=== PATIENT | female | born 1970 | race Caucasian/White ===

== ENCOUNTER → 2021-05-18 | Outpatient (CLI) | payer BC ==
[2021-05-18 15:04] LABS: HEMOGLOBIN 14.9 gm/dl (12.3-15.3); RED BLOOD COUNT 4.8 M/UL (4.00-5.10)
[2021-05-18 15:26] LABS: BUN/CREATININE RATIO 25 (0-10)
[2021-05-19 11:13] LABS: HBSAG SCREEN Negative (Negative); HEP B CORE AB, TOT Negative (Negative)
[2021-05-19 12:13] LABS: HCV AB <0.1 (0.0-0.9)
== END ==
LOC: LAB 13:46
PROVIDERS: Internal Medicine
DX: Z11.59 Encounter for screening for other viral diseases (principal); M79.10 Myalgia, unspecified site; M25.50 Pain in unspecified joint; R79.82 Elevated C-reactive protein (CRP); M06.9 Rheumatoid arthritis, unspecified; D89.89 Other specified disorders involving the immune mechanism, not elsewhere classified; R76.8 Other specified abnormal immunological findings in serum
CPT/HCPCS: 36415; 73630; 80053; 82728; 85025; 85652; 86140; 86704; 86803; 87340